=== PATIENT | female | born 1970 | race Caucasian/White ===

== ENCOUNTER 2016-11-03 07:30 | Day surgery (SDC) | payer OTHER ==
[2016-11-03] MEDS ORDERED: ONDANSETRON 4 MG/2 ML VIAL IVPUSH PRN (09:05)
[2016-11-03] MEDS ORDERED: oxyCODONE HCL 5 MG TABLET PO PRN (09:05)
[2016-11-03] MEDS ORDERED: LACTATED RINGERS SOLUTION 1,000 ML IV SCH (09:15)
[2016-11-03] MEDS ORDERED: PROPOFOL 20 ML ONE (09:17)
[2016-11-03] MEDS ORDERED: MIDAZOLAM HCL 2 MG/2 ML SINGLE DOSE VIAL ONE (09:17)
[2016-11-03] MEDS ORDERED: DEXAMETHASONE SOD PHOSPHATE 4 MG/1 ML VIAL ONE (09:17)
[2016-11-03] MEDS ORDERED: KETOROLAC TROMETHAMINE 30 MG/1 ML VIAL ONE (09:17)
--- NOTE | 2016-11-03 09:35 | HP ---
History & Physical Update - History History: No Change - Physical Physical: No Change - Assessment Assessment: No Change - Plan Plan: No Change (Consent signed and witnessed with fourchette sewer, all questions answered)
[2016-11-03] MEDS ORDERED: IBUPROFEN 800 MG/8 ML IJ IVPB PRN (10:31)
[2016-11-03] MEDS ORDERED: IBUPROFEN 600 MG TABLET (FP) PO PRN (10:31)
[2016-11-03] MEDS ORDERED: ONDANSETRON 4 MG/2 ML VIAL IVPB PRN (10:31)
--- NOTE | 2016-11-03 10:31 | OP ---
Operative Note - Note: Operative Date: 11/03/16 Pre-Operative Diagnosis: 46yo P4 with Postmenopausal bleed, thick endometrium Operation: Hysteroscopy, dialation and curettage Findings: Mild endometrial proliferation, no polyps Post-Operative Diagnosis: Same as Pre-op Surgeon: Carol Jang Anesthesiologist/CAN VACUUM TESTER: Jyotsna Pena Anesthesia: General Specimens Removed: Endometrial curettings Estimated Blood Loss (mls): 5 Drains & Tubes with Location: Dluid deficit 20cc Drains, Volume Out (mls): 20 Fluid Volume Replaced (mls): 400 Operative Report Dictated: Yes
[2016-11-03] MEDS ORDERED: ELECTROLYTE-148 SOLN 1,000 ML IV SCH (10:45)
[2016-11-03 11:01] VITALS: TEMP 97.9
[2016-11-03 12:12] VITALS: BP 122/72; PULSE 63
--- NOTE | 2016-11-04 10:26 | OP ---
DATE OF OPERATION: 11/03/2016 PREOPERATIVE DIAGNOSES: A 46-year-old para 4 with postmenopausal bleeding and thick endometrium. POSTOPERATIVE DIAGNOSES: A 46-year-old para 4 with postmenopausal bleeding and thick endometrium. OPERATION: Hysteroscopy, dilatation and curettage. SURGEON: Carol Jang MD ANESTHESIOLOGIST: Jyotsna Pena MD ANESTHESIA: General. DESCRIPTION OF OPERATIVE PROCEDURE: After ensuring informed consent, patient was brought to the operating room where she was placed in dorsal lithotomy position. Perineum was prepped and draped in sterile fashion. Mixon retractors were placed into the vagina. Anterior cervical lip was grasped with a single-tooth tenaculum. The [employer] diagnostic 5-mm hysteroscope was assembled, and cervix was gradually dilated to 17-[place], and the 5-mm hysteroscope was introduced gently into the uterine cavity with normal saline as a distention medium. The intrauterine contents were surveyed, and normal bilateral tubal ostia were noted. An atrophic endometrial lining was noted as well. Hysteroscope was withdrawn from the endometrial cavity, and the sharp 1 gauge curette was used to scrape the endometrial lining circumferentially. Endometrial curettings were sent for pathology. Excellent hemostasis was achieved. All instruments and sponges were removed from the vagina. Instrument and sponge count was correct x2. Estimated blood loss was 5 mL. Fluid deficit was 20 mL. Urine output was 20 mL, and patient received 400 mL of Plasma-Lyte. Patient was brought to the recovery room in stable condition. Antoine [id number]
--- NOTE | 2016-11-04 13:33 | PATH ---
Surgical Pathology Report Patient Name: RICARDA NUNEZ [facility]. Rec. #: [id number] /Age/Gender: 1970 (Age: 46) / F Account: [id number] Location: [facility] SURGICAL Taken: 11/03/2016 Received: 11/03/2016 Reported: 11/04/2016 Physicians: Carol Jang M.D. Specimen(s) Received ENDOMETRIAL CURETTINGS Clinical History Postmenopausal bleeding Final Diagnosis ENDOMETRIUM, CURETTAGE: FRAGMENTS OF ATROPHIC APPEARING ENDOMETRIUM. SCANT FRAGMENTS OF BENIGN ENDOCERVICAL TISSUE. FRAGMENTS OF BENIGN SQUAMOUS EPITHELIUM. Electronically Signed Davie Acevedo M.D. Gross Description Received in formalin labeled "endometrial curettings" is a 0.5 x 0.4 x 0.1 cm aggregate of roland pink soft tissue fragments. The formalin is filtered and the specimen is entirely submitted in one cassette. /11/03/2016 saudi11/03/2016
== END 2016-11-03 12:14 | disposition home or self-care (01) ==
LOC: JASU-SURG 07:30
PROVIDERS: ATTEND Obstetrics & Gynecology
PROC: 0UDB8ZX Extraction of Endometrium, Via Natural or Artificial Opening Endoscopic, Diagnostic (ICD-10-PCS; principal; 2016-11-03 09:00)
DX: N95.0 Postmenopausal bleeding (principal); R93.8 Abnormal findings on diagnostic imaging of other specified body structures
CPT/HCPCS: 84703; 88305-TC; 94760

== ENCOUNTER 2022-12-15 04:41 | Day surgery (SDC) | payer OTHER ==
[2022-12-14 13:31] VITALS: BMI 34.2
[2022-12-15 10:15] VITALS: RESP 11
[2022-12-15 10:18] VITALS: BP 119/67; PULSE 62; TEMP 97.6
== END 2022-12-15 10:21 | disposition home or self-care (01) ==
LOC: JASU-ENDO 04:41
PROVIDERS: ATTEND Internal Medicine Gastroenterology
PROC: 0DB68ZX Excision of Stomach, Via Natural or Artificial Opening Endoscopic, Diagnostic (ICD-10-PCS; principal; 2022-12-15 09:30)
DX: K29.50 Unspecified chronic gastritis without bleeding (principal); B96.81 Helicobacter pylori [H. pylori] as the cause of diseases classified elsewhere; K44.9 Diaphragmatic hernia without obstruction or gangrene
CPT/HCPCS: 88305-TC; 88342-TC

== ENCOUNTER 2023-01-05 04:58 | Day surgery (SDC) | payer OTHER ==
[2023-01-04 11:40] VITALS: BMI 33.7
[2023-01-05 10:23] VITALS: TEMP 97
[2023-01-05 10:48] VITALS: PULSE 68
[2023-01-05 11:02] VITALS: BP 110/55; RESP 20
== END 2023-01-05 10:56 | disposition home or self-care (01) ==
LOC: JASU-ENDO 04:58
PROVIDERS: ATTEND Internal Medicine Gastroenterology
PROC: 0DBK8ZX Excision of Ascending Colon, Via Natural or Artificial Opening Endoscopic, Diagnostic (ICD-10-PCS; principal; 2023-01-05 09:45)
DX: Z12.11 Encounter for screening for malignant neoplasm of colon (principal); D12.2 Benign neoplasm of ascending colon; K64.8 Other hemorrhoids; K57.30 Diverticulosis of large intestine without perforation or abscess without bleeding; I10 Essential (primary) hypertension
CPT/HCPCS: 88305-TC